=== PATIENT | female | born 1935 | race Caucasian/White ===

== ENCOUNTER 2023-04-06 06:30 | Outpatient (RCR) | payer SELFPAY | END 2023-04-06 23:59 | disposition home or self-care (01) | LOC: RPT 06:30 | PROVIDERS: ATTENDING PHYSICIAN Internal Medicine | DX: I89.0 Lymphedema, not elsewhere classified (principal); Z73.6 Limitation of activities due to disability | CPT/HCPCS: 97162; 97530 ==

== ENCOUNTER → 2024-05-12 11:04 | Outpatient (REF) | payer MEDICARE, OTHER, SELFPAY ==
[2024-05-12 11:44] LABS: % Basophils 0.8 % (0-2); % Eosinophils 2.3 % (0-6); % Immature Granulocytes 0.2 % (0-0.5); % Lymphocytes 33.1 % (20.5-51.1); % Monocytes 10.3 % (1.7-9.3); % Neutrophils 53.3 % (42.2-75.2); Absolute Eosinophils 0.1 10^3/uL (0-0.7); Absolute Lymphocytes 1.6 10^3/uL (1.2-3.4); Absolute Monocytes 0.5 10^3/uL (0.1-0.6); Absolute Neutrophils 2.6 10^3/uL (1.4-6.5); Hematocrit 30.8 % (37.0-47.0); Mean Corp Hgb Conc. 32.5 g/dL (33.0-37.0); Mean Corpuscular Hgb 33.2 pg (27.0-31.0); Mean Corpuscular Volume 102.3 fL (81.0-99.0); Mean Platelet Volume 9.7 fL (7.4-10.4); Nucleated Red Blood Cells % 0 %; Platelet Count 126 10^3/uL (130-400); Red Blood Cell Count 3.01 10^6/uL (4.20-5.40); Red Cell Dist. Width 13.1 % (11.5-14.5); White Blood Cell Count 4.9 10^3/uL (4.8-10.8)
[2024-05-12 11:48] LABS: INR 1.04; PT 13.9 Sec (11.4-14.6)
[2024-05-12 11:49] LABS: APTT 32.3 Sec (23.4-35.0)
[2024-05-12 12:18] LABS: ALT (SGPT) 15 U/L (0-35); AST (SGOT) 28 U/L (14-36); Albumin 4.6 g/dl (3.5-5.0); Alkaline Phosphatase 88 U/L (38-126); Blood Urea Nitrogen 61 mg/dl (7-17); Calcium 9.8 mg/dl (8.4-10.2); Carbon Dioxide 29 mmol/L (22-30); Chloride 99 mmol/L (98-107); Glucose 81 mg/dl (70-99); HDL Cholesterol 50 mg/dl; LDL Cholesterol, Calculated 65 mg/dl; Potassium 4.5 mmol/L (3.5-5.1); Sodium 139 mmol/L (135-145); Total Bilirubin 0.8 mg/dl (0.2-1.3); Total Cholesterol 131 mg/dl (50-199); Total Protein 6.9 g/dl (6.3-8.2); Triglyceride 80 mg/dl (10-149); Very Low Density Lipoprotein 16 mg/dl (0-30); eGFR 33.31
== END ==
LOC: REG 11:04
PROVIDERS: ATTENDING PHYSICIAN Internal Medicine
DX: I48.19 Other persistent atrial fibrillation (principal); Z00.01 Encounter for general adult medical examination with abnormal findings; I10 Essential (primary) hypertension; Z79.01 Long term (current) use of anticoagulants
CPT/HCPCS: 36415; 80053; 80061; 85025; 85610; 85730

== ENCOUNTER 2024-07-06 08:44 | Outpatient (RCR) | payer MEDICARE, OTHER, SELFPAY | END 2024-07-06 23:59 | disposition home or self-care (01) | LOC: RPT 08:44 | PROVIDERS: ATTENDING PHYSICIAN Internal Medicine | DX: I89.0 Lymphedema, not elsewhere classified (principal); Z73.6 Limitation of activities due to disability; R26.2 Difficulty in walking, not elsewhere classified; M54.9 Dorsalgia, unspecified; R26.89 Other abnormalities of gait and mobility; M25.552 Pain in left hip; M25.551 Pain in right hip; M19.90 Unspecified osteoarthritis, unspecified site; R29.6 Repeated falls | CPT/HCPCS: 97162; 97530; 97760 ==

== ENCOUNTER → 2024-07-06 13:36 | Outpatient (REF) | payer MEDICARE, OTHER, SELFPAY ==
[2024-07-06 16:54] LABS: Folate > 20.0 ng/ml (2.76-20); Vitamin B12 994 pg/ml (239-931)
== END ==
LOC: REG 13:36
PROVIDERS: ATTENDING PHYSICIAN Internal Medicine
DX: D75.89 Other specified diseases of blood and blood-forming organs (principal); D51.9 Vitamin B12 deficiency anemia, unspecified
CPT/HCPCS: 36415; 82607; 82746

== ENCOUNTER → 2025-02-09 12:05 | Outpatient (REF) | payer MEDICARE, OTHER, SELFPAY ==
[2025-02-09 13:14] LABS: Hematocrit 30.2 % (37.0-47.0); Hemoglobin 9.5 g/dL (12.0-16.0); Mean Corp Hgb Conc. 31.5 g/dL (33.0-37.0); Mean Corpuscular Volume 105.6 fL (81.0-99.0); Nucleated Red Blood Cells % 0 %; Platelet Count 142 10^3/uL (130-400); Red Cell Dist. Width 12.5 % (11.5-14.5)
[2025-02-09 13:46] LABS: ALT (SGPT) 22 U/L (0-35); AST (SGOT) 29 U/L (14-36); Albumin 4.6 g/dl (3.5-5.0); Alkaline Phosphatase 114 U/L (38-126); Blood Urea Nitrogen 97 mg/dl (7-17); Calcium 9.6 mg/dl (8.4-10.2); Carbon Dioxide 29 mmol/L (22-30); Chloride 100 mmol/L (98-107); Glucose 79 mg/dl (70-99); Potassium 4.8 mmol/L (3.5-5.1); Sodium 137 mmol/L (135-145); Total Protein 7.2 g/dl (6.3-8.2); eGFR 28.49
== END ==
LOC: REG 12:05
PROVIDERS: ATTENDING PHYSICIAN Nurse Practitioner Acute Care
DX: I89.0 Lymphedema, not elsewhere classified (principal); I50.9 Heart failure, unspecified; L03.90 Cellulitis, unspecified; N18.32 Chronic kidney disease, stage 3b; I13.0 Hypertensive heart and chronic kidney disease with heart failure and stage 1 through stage 4 chronic kidney disease, or unspecified chronic kidney disease
CPT/HCPCS: 36415; 80053; 83880; 85025

== ENCOUNTER → 2025-02-26 17:36 | Outpatient (REF) | payer MEDICARE, OTHER, SELFPAY ==
[2025-02-26 19:35] LABS: Urine Character Cloudy (Clear)
[2025-02-26 19:54] LABS: Urine White Cell >100 /HPF (0-5)
== END ==
LOC: CLAB 17:36
PROVIDERS: ATTENDING PHYSICIAN Nurse Practitioner Acute Care
DX: R39.9 Unspecified symptoms and signs involving the genitourinary system (principal); R32 Unspecified urinary incontinence
CPT/HCPCS: 81003; 81015; 87086; 87088; 87186